=== PATIENT | male | born 1955 | race Hispanic/Latino ===

== ENCOUNTER 2019-04-29 17:20 | Emergency (ER) | payer BC ==
--- NOTE | 2019-04-29 19:02 | Vascular Lab Report ---
DUPLEX DOPPLER LOWER EXTREMITY VEINS, LEFT INDICATION: Left lower extremity pain after long travel. Left ankle swelling. TECHNIQUE: Duplex doppler imaging was performed through the veins of the left lower extremity using venous compr ession and other maneuvers. COMPARISON: No relevant prior imaging study available. FINDINGS: Common Femoral vein: Negative. Superficial Femoral vein: Negative. Popliteal vein: Negative. Calf veins: Negative. Additional findings: None. IMPRESSION: 1. No sonographic evidence for DVT in the left lower extremity. Signer Name: Christofer Mcmahan MD Signed: 04/29/2019 6:58 PM Workstation Name: [id number]
[2019-04-29 19:22] LABS: Basophils # (Auto) 0.1 K/mm3 (0.0-0.1); Basophils % (Auto) 1.2 % (0.0-1.8); Eosinophils # (Auto) 0.2 K/mm3 (0.0-0.4); Eosinophils % (Auto) 1.5 % (0.0-4.3); Hematocrit 44.3 % (35.5-45.6); Hemoglobin 15.2 gm/dl (11.8-15.2); Lymphocytes # (Auto) 1.9 K/mm3 (1.2-5.4); Lymphocytes % (Auto) 18.5 % (13.4-35.0); Mean Corpuscular HGB Conc 34 % (32-34); Mean Corpuscular Volume 92 fl (84-94); Monocytes # (Auto) 0.8 K/mm3 (0.0-0.8); Monocytes % (Auto) 7.5 % (0.0-7.3); Platelet Count 258 K/mm3 (140-440); Red Blood Count 4.84 M/mm3 (3.65-5.03); Red Cell Distribution Width 13.5 % (13.2-15.2)
[2019-04-29 19:33] LABS: INR 0.98 (0.87-1.13)
[2019-04-29 20:00] LABS: BUN/Creatinine Ratio 16; Blood Urea Nitrogen 16 mg/dL (9-20); Calcium 9.6 mg/dL (8.4-10.2); Hemolysis Index 62
--- NOTE | 2019-04-29 21:03 | Cat Scan Report ---
CTA CHEST WITH IV CONTRAST INDICATION / CLINICAL INFORMATION: dyspnea with near syncope. TECHNIQUE: Axial CT images were obtained through the chest after injection of 100 mL Omnipaque 350 IV contrast. 3 plane MIP and/or 3D reconstructions were produced. All CT scans at this location are performed usin g CT dose reduction for ALARA by means of automated exposure control. COMPARISON: None available. FINDINGS: PULMONARY ARTERIES: No pulmonary emboli. THORACIC AORTA: No significant abnormality. HEART: No significant abnormality. CORONARY ARTERIES: No significant calcification. PLEURA: No pleural effusion. No pneumothorax. LYMPH NODES: No adenopathy. LUNGS: No acute air space or interstitial disease. There is a calcified granuloma in the right upper lobe. ADDITIONAL FINDINGS: None. UPPER ABDOMEN: No acute findings. SKELETAL STRUCTURES: No acute osseous abnormality. A low-grade cartilaginous lesion in the T5 vertebr al body is noted, most likely to be an enchondroma. IMPRESSION: 1. No CT evidence for pulmonary embolism. 2. No acute findings. Signer Name: Matt Carmichael MD Signed: 04/29/2019 8:58 PM Workstation Name: [id number]
[2019-04-29] MEDS ORDERED: SODIUM CHLORIDE 0.9% 1000 ML 1,000 ML IV ONE (21:15)
--- NOTE | 2019-04-29 21:42 | Emergency Department Report ---
ED General Adult HPI - General Chief complaint: Neuro Symptoms/Deficit Stated complaint: DIZZINESS WHILE DRIVING Time Seen by Provider: 04/29/19 18:05 Source: patient, EMS Mode of arrival: Stretcher Limitations: No Limitations - History of Present Illness Initial comments: Patient is a 63-year-old male who had a near syncopal episode while driving his car today. Patient states that [place] felt dizzy and felt as though he was going to pass out. States he had no chest pain at the time denies shortness of breath although he states his breathing was heavier than normal. Patient states was able to loop puller and called paramedics to attend to him. States he has some very mild tingling in his left fourth and fifth digit. Patient states it is this time his symptoms have also resolved. Patient denies having any focal neurological deficits fevers chills nausea vomiting. Patient is concerned that he may have a DVT and pulmonary embolus. Patient states that approximately 3 weeks ago he had a long flight from [facility] back to the [facility]. Patient states approximately a week after returning his left calf began to ache and now he has pain in the entire left leg. He states his been no swelling or warmth to the leg. After the episode today patient believes he may have a pulmonary embolus. Patient is traveling currently from [place] to [place] in his car. Severity scale (0 -10): 0 - Related Data Allergies Allergy/AdvReac Type Severity Reaction Status Date / Time amoxicillin Allergy Rash Verified 04/29/19 17:30 ED Review of Systems ROS: Stated complaint: DIZZINESS WHILE DRIVING Other details as noted in HPI Comment: All other systems reviewed and negative ED Past Medical Hx - Past Medical History Previous Medical History?: Yes Hx GERD: Yes Additional medical history: prostate. high cholestrol - Surgical History Past Surgical History?: Yes Additional Surgical History: right rotator cuff. left elbow- tennis elbow - Social History Smoking Status: Never Smoker Substance Use Type: None ED Physical Exam - General Limitations: No Limitations General appearance: alert, in no apparent distress - Head Head exam: Present: atraumatic, normocephalic - Eye Eye exam: Present: normal appearance, PERRL, EOMI - ENT ENT exam: Present: mucous membranes moist - Neck Neck exam: Present: normal inspection. Absent: tenderness, meningismus - Respiratory Respiratory exam: Present: normal lung sounds bilaterally. Absent: respiratory distress, wheezes, rales, rhonchi - Cardiovascular Cardiovascular Exam: Present: regular rate, normal rhythm, normal heart sounds. Absent: systolic murmur, diastolic murmur, rubs, gallop - GI/Abdominal GI/Abdominal exam: Present: soft, normal bowel sounds. Absent: distended, tenderness, guarding, rebound - Rectal Rectal exam: Present: deferred - Extremities Exam Extremities exam: Present: normal inspection - Back Exam Back exam: Present: normal inspection - Neurological Exam Neurological exam: Present: alert, oriented X3 - Psychiatric Psychiatric exam: Present: normal affect, normal mood - Skin Skin exam: Present: warm, dry, intact, normal color. Absent: rash ED Course Vital Signs 04/29/19 04/29/19 04/29/19 18:16 18:20 18:22 Temperature 98.3 F Pulse Rate 90 Respiratory 11 L 11 L Rate Blood Pressure Blood Pressure 137/87 [Right] O2 Sat by Pulse 97 95 95 Oximetry 04/29/19 04/29/19 04/29/19 18:58 19:01 19:15 Temperature Pulse Rate 75 79 Respiratory 16 15 Rate Blood Pressure 137/87 137/87 140/86 Blood Pressure [Right] O2 Sat by Pulse 96 96 93 Oximetry ED Medical Decision Making - Lab Data Result diagrams: 04/29/19 18:58 04/29/19 18:58 Lab Results 04/29/19 04/29/19 04/29/19 Range/Units 18:58 18:58 18:58 WBC 10.3 (4.5-11.0) K/mm3 RBC 4.84 (3.65-5.03) M/mm3 Hgb 15.2 (11.8-15.2) gm/dl Hct 44.3 (35.5-45.6) % MCV 92 (84-94) fl MCH 31 (28-32) pg MCHC 34 (32-34) % RDW 13.5 (13.2-15.2) % Plt Count 258 (140-440) K/mm3 Lymph % (Auto) 18.5 (13.4-35.0) % [place] % (Auto) 7.5 H (0.0-7.3) % Eos % (Auto) 1.5 (0.0-4.3) % Baso % (Auto) 1.2 (0.0-1.8) % Lymph # 1.9 (1.2-5.4) K/mm3 [place] # 0.8 (0.0-0.8) K/mm3 Eos # 0.2 (0.0-0.4) K/mm3 Baso # 0.1 (0.0-0.1) K/mm3 Seg Neutrophils % 71.3 H (40.0-70.0) % Seg Neutrophils # 7.3 (1.8-7.7) K/mm3 PT 12.9 (12.2-14.9) Sec. INR 0.98 (0.87-1.13) APTT 27.0 (24.2-36.6) Sec. Sodium 143 (137-145) mmol/L Potassium 4.1 (3.6-5.0) mmol/L Chloride 104.9 (98-107) mmol/L Carbon Dioxide 25 (22-30) mmol/L Anion Gap 17 mmol/L BUN 16 (9-20) mg/dL Creatinine 1.0 (0.8-1.5) mg/dL Estimated GFR > 60 ml/min BUN/Creatinine Ratio 16 % Glucose 116 H (75-100) mg/dL Calcium 9.6 (8.4-10.2) mg/dL Troponin T < 0.010 (0.00-0.029) ng/mL Plasma/Serum Alcohol (0-0.07) % 04/29/19 Range/Units 18:58 WBC (4.5-11.0) K/mm3 RBC (3.65-5.03) M/mm3 Hgb (11.8-15.2) gm/dl Hct (35.5-45.6) % MCV (84-94) fl MCH (28-32) pg MCHC (32-34) % RDW (13.2-15.2) % Plt Count (140-440) K/mm3 Lymph % (Auto) (13.4-35.0) % [place] % (Auto) (0.0-7.3) % Eos % (Auto) (0.0-4.3) % Baso % (Auto) (0.0-1.8) % Lymph # (1.2-5.4) K/mm3 [place] # (0.0-0.8) K/mm3 Eos # (0.0-0.4) K/mm3 Baso # (0.0-0.1) K/mm3 Seg Neutrophils % (40.0-70.0) % Seg Neutrophils # (1.8-7.7) K/mm3 PT (12.2-14.9) Sec. INR (0.87-1.13) APTT (24.2-36.6) Sec. Sodium (137-145) mmol/L Potassium (3.6-5.0) mmol/L Chloride (98-107) mmol/L Carbon Dioxide (22-30) mmol/L Anion Gap mmol/L BUN (9-20) mg/dL Creatinine (0.8-1.5) mg/dL Estimated GFR ml/min BUN/Creatinine Ratio % Glucose (75-100) mg/dL Calcium (8.4-10.2) mg/dL Troponin T (0.00-0.029) ng/mL Plasma/Serum Alcohol < 0.01 (0-0.07) % - EKG Data -: EKG Interpreted by Al EKG shows normal: sinus rhythm, axis, intervals, QRS complexes, ST-T waves Rate: normal - EKG Data Interpretation: normal EKG - Radiology Data DUPLEX DOPPLER LOWER EXTREMITY VEINS, LEFT INDICATION: Left lower extremity pain after long travel. Left ankle swelling. TECHNIQUE: Duplex doppler imaging was performed through the veins of the left lower extremity using venous compression and other maneuvers. COMPARISON: No relevant prior imaging study available. FINDINGS: Common Femoral vein: Negative. Superficial Femoral vein: Negative. Popliteal vein: Negative. Calf veins: Negative. Additional findings: None. IMPRESSION: 1. No sonographic evidence for DVT in the left lower extremity. Signer Name: Christofer Mcmahan MD Signed: 04/29/2019 6:58 PM Workstation Name: [id number] CTA CHEST WITH IV CONTRAST INDICATION / CLINICAL INFORMATION: dyspnea with near syncope. TECHNIQUE: Axial CT images were obtained through the chest after injection of 100 mL Om nipaque 350 IV contrast. 3 plane MIP and/or 3D reconstructions were produced. All CT scans at this location are performed using CT dose reduction for ALARA by means of automated exposure control. COMPARISON: None available. FINDINGS: PULMONARY ARTERIES: No pulmonary emboli. THORACIC AORTA: No significant abnormality. HEART: No significant abnormality. CORONARY ARTERIES: No significant calcification. PLEURA: No pleural effusion. No pneumothorax. LYMPH NODES: No adenopathy. LUNGS: No acute air space or interstitial disease. There is a calcified granuloma in the right upper lobe. ADDITIONAL FINDINGS: None. UPPER ABDOMEN: No acute findings. SKELETAL STRUCTURES: No acute osseous abnormality. A low-grade cartilaginous lesion in the T5 vertebral body is noted, most likely to be an enchondroma. IMPRESSION: 1. No CT evidence for pulmonary embolism. 2. No acute findings. Signer Name: Matt Carmichael MD Signed: 04/29/2019 8:58 PM Workstation Name: [id number] - Medical Decision Making Patient is a 63-year-old gentleman who is presenting after a near syncopal episode. Patient's symptoms were very concerning for pulmonary embolus and DVT. Patient's had several episodes of long travel in the last several weeks. The patient had ultrasound of his left lower extremity which showed no evidence of DVT. Laboratory studies are within normal limits. Patient had no new onset renal failure, hypoglycemia, or anemia. These were ruled out. CT of the chest with angiography showed no pulmonary embolus. Patient states that prior to coming here today he has been very sedentary after his long flight from [place] and with his long travel currently. Patient had been in his vehicle for approximately 5 hours with this symptoms occurred. He also states he had a meal that was abnormal for him which consisted of fast food. Patient has no evidence of acute renal failure however he likely was having some poor circulation from his long episode of being sedentary which causes a near syncopal episode. Patient was given a liter of normal saline. Patient is able to tolerate and states he feels 100% back to his normal self. Patient encouraged to continue driving to take more frequent stops where he gets up and moves around. Patient has been instructed to stop every 1-2 hours at least for several minutes to help with circulation. Patient also encouraged to orally hydrate as well. Patient be discharged home. Critical care attestation.: If time is entered above; I have spent that time in minutes in the direct care of this critically ill patient, excluding procedure time. ED Disposition Clinical Impression: Near syncope Disposition: DC-01 TO HOME OR SELFCARE Is pt being admited?: No Does the pt Need Aspirin: No Condition: Stable Instructions: Near Syncope (ED) Referrals: PRIMARY CAREMD [Primary Care Provider] - 3-5 Days Time of Disposition: 21:48
[2019-04-29 22:08] VITALS: BP 145/86
== END 2019-04-29 22:23 | disposition home or self-care (01) ==
LOC: ED 17:20
DX: R55 Syncope and collapse (principal); R42 Dizziness and giddiness; R20.2 Paresthesia of skin; K21.9 Gastro-esophageal reflux disease without esophagitis; E78.00 Pure hypercholesterolemia, unspecified; Z88.1 Allergy status to other antibiotic agents
CPT/HCPCS: 36415; 71275; 80048; 84484; 85025; 85610; 85730; 93005; 93010; 93971; 96360; 99285; J7030; Q9967; 80320; G0480